=== PATIENT | male | born 1950 | race Caucasian/White ===

== ENCOUNTER 2016-12-07 12:12 | Emergency (ER) | payer OTHER ==
--- NOTE | 2016-12-07 14:30 | ED NURSING NOTES ---
Clinical Report - Nurses [facility] [address] [address] 12/07/2016 12:15 Patient: JACQUI ALFARO TRIAGE Triage time 12:41 Dec 07 2016. Acuity: LEVEL 4. Chief Complaint: (unsure pt's general complaint). Alert. No acute distress. BERNICE COMA SCORE: [place] Coma Scale: 15- eyes open spontaneously (4); best verbal response- oriented x 4 (5); best motor response- obeys commands (6). --12:49 Johana Fletcher R.N. 12:41 12/07/16. BP: 156/83. HR: 77. RR: 18. O2 saturation: 99%. Temp: 97.7 F. Pain level now 0/10. --12:49 Johana Fletcher R.N. Weight: 81.6 kg estimated. Height/Length: 66 inches Estimated. BMI: 29. --12:40 Johana Fletcher R.N. Medications Atenolol Oral 50 mg, 3 tablets a day. --13:43 Johana Fletcher R.N. AmLODIPine Besylate Oral 5 mg, daily. --13:43 Johana Fletcher R.N. Central-Sonido 1 tab, daily. --13:44 Johana Fletcher R.N. Fiber Choice Oral 2 tabs at dinner. --13:44 Johana Fletcher R.N. Omeprazole Oral 20 mg, daily. --13:45 Johana Fletcher R.N. Medication/allergy information source: the patient (getting a list). --12:49 Johana Fletcher R.N. Allergies None. --13:57 Johana Fletcher R.N. History Arrived by private vehicle. Historian: patient. Primary physician (Dr. Cooper). ( Sent over by Dr. Cooper. "because I'm not feeling better". Difficult to establish primary complaint from patient. Pt was on Sulfa for an infection on his face back in October. Thinks he was allergic from Sulfa, but still completed the course. Then started taking Naproxen, had 1 pill and said he had a reaction. Unsure what the reaction was. RN unclear what the complain is.). Treatment WELFARE ELIGIBILITY INTERVIEWER: None. PAST MEDICAL HX: Hypertension. No history of diabetes mellitus or lung disease. Immunizations: seasonal influenza. SOCIAL HX: Never smoker. Occasional alcohol use. No drug use. FALL RISK ASSESSMENT: Fall risk assessment completed. No fall risk identified. NUTRITIONAL RISK ASSESSMENT: The nutritional risk assessment revealed no deficiencies. FUNCTIONAL ASSESSMENT: Functional assessment: no impairments noted. LEARNING NEEDS ASSESSMENT: The learning needs assessment revealed no barriers. SKIN INTEGRITY ASSESSMENT: Skin integrity risk assessment completed. No skin integrity risk identified. --12:49 Johana Fletcher R.N. Interventions ID band on patient. To room. --12:49 Johana Fletcher R.N. PHYSICAL ASSESSMENT Ambulatory to room. GENERAL / NEURO / PSYCH: Oriented X 4. Appears in no acute distress. HEENT: Pupils equal, round and reactive to light. No facial asymmetry noted. Mucous membranes are pink. RESPIRATORY: Respirations not labored. CVS: Capillary refill less than 2 seconds. SKIN: Skin is warm and dry. --13:38 Johana Fletcher R.N. SKIN: Skin intact. Normal skin turgor. No skin rash. No skin breakdown noted. --13:58 Johana Fletcher R.N. NURSING PROGRESS NOTES ( seen by provider). --13:39 Johana Fletcher R.N. Blood samples drawn by lab per protocol: rainbow set. --13:57 Johana Fletcher R.N. ( Pt has many questions regarding the process of his labs, what will be happening after his blood work, will Dr. Cooper know the results, what if the staff doesn't do the right tests or enough tests, pt brought out multiple papers regarding his Sulfa and Naproxen pharmacy papers stating what side effects and reactions could be. Pt redirected on plan of care and that he needs to stay in the ER until labs are completed and discharged.). --14:31 Johana Fletcher R.N. DISPOSITION / DISCHARGE Departure time: 15:04 Dec 07 2016. --15:05 Johana Fletcher R.N. Condition at departure: unchanged and stable. No learning barriers present. Discharge instructions provided and reviewed with the patient. Patient verbalized understanding. Written instructions provided in [employer]eless. No medication instructions. The patient was discharged by the physician. He was discharged home. He left the Emergency Department ambulatory and via private vehicle. Patient driving. --15:05 Johana Fletcher R.N. Locked/Released at 12/07/2016 15:05 by Johana Fletcher R.N.
--- NOTE | 2016-12-07 14:30 | ED ORDER SUMMARY ---
..... Patient: JACQUI ALFARO OrderSheet [facility] VisitID: [id number] [address] [place] [address] 66y, M Registration Date/Time: 12/07/2016 ORDER SHEET Weight: 81.6 kg (estimated) Allergies: None GENERAL ORDERS: CBC w Diff Urgent (13:18 12/07/2016 HBivens A.R.N.P.) (Ack 13:23 LMuller) (14:09 LMuller) CMP Urgent (13:18 12/07/2016 HBivens A.R.N.P.) (Ack 13:23 LMuller) (14:09 LMuller) MEDICATION ORDERS: IV FLUIDS: ORDER SHEET NOTES: [Electronically signed by Johana Fletcher R.N. (15:05 12/07/2016)] [Electronically signed by Chela Jefferson.R.N.PJo (15:12/07/2016)] [Electronically locked/signed by Jhoana Fletcher R.N. (15:05 12/07/2016)]
--- NOTE | 2016-12-07 14:30 | ED CLINICAL REPORT ---
Clinical Report - Physicians/Mid Levels [facility] [address] [place] [address] 12/07/2016 12:15 Patient: JACQUI ALFARO Time Seen: 1303; initial patient contact, initial documentation, patient care assumed. Arrived- By private vehicle. Historian- patient. HISTORY OF PRESENT ILLNESS Chief Complaint: ( muscle aches). At its maximum, severity described as severe. When seen in the E.D., severity described as mild. Modifying factors. Not worsened by anything. Not relieved by anything. This started about 2 weeks ago and is still present but is improving. It was abrupt in onset and has been constant. No loss of appetite, weight loss, headache, visual disturbance or fatigue. Denies sleep problem. He has had muscle aches and weakness. No decreased urine output. Similar symptoms previously: None. Recent medical care: The patient was seen recently in the office. ( states he went to dr on 11/22 for infection on his face, dx with mrsa and given x10d bactrim rx, day 2 of taking it, started feeling bed, muscle aches every where, weakness, and didn't feel well, finished the abx and went back to dr on 12/04, was told infection on face looked better and to put abx ointment on it, went back to dr on 12/04 for body aches, blood work done, went back to dr / for the blood work results, and was given naprosyn, immediately after taking the naprosyn started having sweats, thinks he is having reactions to bactrim and naprosyn). REVIEW OF SYSTEMS No fever, sore throat, sinus drainage, nasal congestion or cough. No difficulty breathing, chest pain, abdominal pain, vomiting or diarrhea. No chills. All systems otherwise negative, except as recorded above. PAST HISTORY See nurses notes. Hypertension. Surgeries: Cholecystectomy. SOCIAL HISTORY Never smoker. Occasional alcohol use. No drug use. No recent travel. Is a local resident. FAMILY HISTORY Negative. ADDITIONAL NOTES The nursing notes have been reviewed with agreement regarding the chief complaint, HPI, ROS, PMH and patient medications and allergies. PHYSICAL EXAM Vital Signs: 12/07/2016 12:41 BP: 156/83. HR: 77. RR: 18. O2 saturation: 99%. Temp: 97.7 F. Have been reviewed as normal and appear to be correct. Appearance: Alert. No acute distress. Eyes: Pupils equal, round and reactive to light. Eyes normal inspection. Neck: Normal inspection. Neck supple. CVS: Normal heart rate and rhythm. Heart sounds normal. Pulses normal. Respiratory: No respiratory distress. Breath sounds normal. Chest nontender. Abdomen: No visible injury. Soft and nontender. Mildly obese. Back: Normal inspection. Skin: Skin warm and dry. Normal skin color. No rash. Normal skin turgor. (healing wound to L side of face/chin area, covered up by mustache until he pulls hair out of way, mild erythema, no swelling, no dc). Extremities: Extremities exhibit normal ROM. No lower extremity edema. Neuro: Oriented X 3. No motor deficit. No sensory deficit. LABS, X-RAYS, AND EKG Laboratory Tests: CBC w Diff: (MICHAEL: 12/07/2016 13:45) ( MsgRcvd 12/07/2016 13:52) Final results Test Result Flag Units (Reference) WHITE BLOOD COUNT 6.6 K/uL (4.5-11.5) RED BLOOD COUNT 4.13 L M/uL (4.50-5.90) HEMOGLOBIN 12.3 L gm/dL (13.5-17.5) HEMATOCRIT 37.5 L % (41.0-53.0) MEAN CELL VOLUME 91 fL (80-100) MEAN CORPUSCULAR HGB 30 pg (26-34) MEAN CORPUSCULAR HGB CONC 33 g/dL (31-37) RED CELL DISTRIBUTION WIDTH 13.5 % (11.6-14.8) PLATELET COUNT 327 K/uL (150-400) NEUTROPHIL % 75.6 H % (50-75) LYMPH % 16.1 L % (25-40) MONO % 7.9 % (3-14) EOSINOPHIL % 0.1 % (0-4) BASOPHIL % 0.3 % (0-2) CMP: (MICHAEL: 12/07/2016 13:45) ( MsgRcvd 12/07/2016 14:14) Final results Test Result Flag Units (Reference) GLUCOSE 130 H mg/dL (70-110) BUN 24 H mg/dL (7-18) CREATININE 0.8 mg/dL (0.6-1.3) Estimated GFR >60 mL/min Estimated GFR- >60 mL/min Note: Persistent reduction over 3 months in eGFR<60 mL/min/1.73 m2 defines CKD. Patients with eGFR values>=60 mL/min/1.73 m2 may also have CKD if evidence ofpersistent proteinuria. Additional information may be foundat www.kidney.org. SODIUM 142 mmol/L (136-145) POTASSIUM 5.0 mmol/L (3.5-5.1) CHLORIDE 106 mmol/L (98-107) CARBON DIOXIDE 28 mmol/L (21-32) CALCIUM 10.0 mg/dL (8.5-10.1) TOTAL PROTEIN 7.0 g/dL (6.4-8.2) ALBUMIN 2.6 L g/dL (3.3-5.0) BILIRUBIN, TOTAL 0.3 mg/dL (0.0-1.0) ALKALINE PHOSPHATASE 450 H U/L (46-116) AST (SGOT) 59 H U/L (15-37) ALT (SGPT) 171 H U/L (12-78) . PROGRESS AND PROCEDURES Patient counseled in person regarding the patient's stable condition, test results and diagnosis. 14:25. Differential Diagnosis: Other possible considerations: allergic reaction, mrsa, cellulitis, abscess, sepsis, flu, viral illness. Above considerations are based on history, physical exam and laboratory data. Differential diagnosis was discussed with patient. Disposition: Discharged home in good and unchanged condition (14:30). Condition: good and stable. CLINICAL IMPRESSION Normal exam upon presentation, while in the ED and at discharge. INSTRUCTIONS Warnings: Further evaluation is necessary in order to recheck abnormal lab. It is very important to follow up with a physician. GENERAL WARNINGS: Return or contact your physician immediately if your condition worsens or changes unexpectedly, if not improving as expected, or if other problems arise. Specifically return if problem worsens. Follow-up: Follow up with your doctor in about three days even if well. Call for an appointment. Summary of care provided to patient. Understanding of the discharge instructions verbalized by patient. (Electronically signed by Chela Jefferson A.R.N.P. 12/07/2016 15:08)
--- NOTE | 2016-12-07 14:30 | ED ORDER SUMMARY ---
..... Patient: JACQUI ALFARO OrderSheet [facility] VisitID: [id number] [address] [place] [address] 66y, M Registration Date/Time: 12/07/2016 ORDER SHEET Weight: 81.6 kg (estimated) Allergies: None GENERAL ORDERS: CBC w Diff Urgent (13:18 12/07/2016 HBivens A.R.N.P.) (Ack 13:23 LMuller) (14:09 LMuller) CMP Urgent (13:18 12/07/2016 HBivens A.R.N.P.) (Ack 13:23 LMuller) (14:09 LMuller) MEDICATION ORDERS: IV FLUIDS: ORDER SHEET NOTES: [Electronically signed by Johana Fletcher R.N. (15:05 12/07/2016)] [Electronically signed by Chela Jefferson.R.N.PJo (15:12/07/2016)] [Electronically locked/signed by Johana Fletcher R.N. (15:05 12/07/2016)]
--- NOTE | 2016-12-07 14:30 | ED NURSING NOTES ---
Clinical Report - Nurses [facility] [address] [address] 12/07/2016 12:15 Patient: JACQUI ALFARO TRIAGE Triage time 12:41 Dec 07 2016. Acuity: LEVEL 4. Chief Complaint: (unsure pt's general complaint). Alert. No acute distress. BERNICE COMA SCORE: [place] Coma Scale: 15- eyes open spontaneously (4); best verbal response- oriented x 4 (5); best motor response- obeys commands (6). --12:49 Johana Fletcher R.N. 12:41 12/07/16. BP: 156/83. HR: 77. RR: 18. O2 saturation: 99%. Temp: 97.7 F. Pain level now 0/10. --12:49 Johana Fletcher R.N. Weight: 81.6 kg estimated. Height/Length: 66 inches Estimated. BMI: 29. --12:40 Johana Fletcher R.N. Medications Atenolol Oral 50 mg, 3 tablets a day. --13:43 Johana Fletcher R.N. AmLODIPine Besylate Oral 5 mg, daily. --13:43 Johana Fletcher R.N. Central-Sonido 1 tab, daily. --13:44 Johana Fletcher R.N. Fiber Choice Oral 2 tabs at dinner. --13:44 Johana Fletcher R.N. Omeprazole Oral 20 mg, daily. --13:45 Johana Fletcher R.N. Medication/allergy information source: the patient (getting a list). --12:49 Johana Fletcher R.N. Allergies None. --13:57 Johana Fletcher R.N. History Arrived by private vehicle. Historian: patient. Primary physician (Dr. Cooper). ( Sent over by Dr. Cooper. "because I'm not feeling better". Difficult to establish primary complaint from patient. Pt was on Sulfa for an infection on his face back in October. Thinks he was allergic from Sulfa, but still completed the course. Then started taking Naproxen, had 1 pill and said he had a reaction. Unsure what the reaction was. RN unclear what the complain is.). Treatment WORKERS COMPENSATION CLAIMS SUPERVISOR: None. PAST MEDICAL HX: Hypertension. No history of diabetes mellitus or lung disease. Immunizations: seasonal influenza. SOCIAL HX: Never smoker. Occasional alcohol use. No drug use. FALL RISK ASSESSMENT: Fall risk assessment completed. No fall risk identified. NUTRITIONAL RISK ASSESSMENT: The nutritional risk assessment revealed no deficiencies. FUNCTIONAL ASSESSMENT: Functional assessment: no impairments noted. LEARNING NEEDS ASSESSMENT: The learning needs assessment revealed no barriers. SKIN INTEGRITY ASSESSMENT: Skin integrity risk assessment completed. No skin integrity risk identified. --12:49 Johana Fletcher R.N. Interventions ID band on patient. To room. --12:49 Johana Fletcher R.N. PHYSICAL ASSESSMENT Ambulatory to room. GENERAL / NEURO / PSYCH: Oriented X 4. Appears in no acute distress. HEENT: Pupils equal, round and reactive to light. No facial asymmetry noted. Mucous membranes are pink. RESPIRATORY: Respirations not labored. CVS: Capillary refill less than 2 seconds. SKIN: Skin is warm and dry. --13:38 Johana Fletcher R.N. SKIN: Skin intact. Normal skin turgor. No skin rash. No skin breakdown noted. --13:58 Johana Fletcher R.N. NURSING PROGRESS NOTES ( seen by provider). --13:39 Johana Fletcher R.N. Blood samples drawn by lab per protocol: rainbow set. --13:57 Johana Fletcher R.N. ( Pt has many questions regarding the process of his labs, what will be happening after his blood work, will Dr. Cooper know the results, what if the staff doesn't do the right tests or enough tests, pt brought out multiple papers regarding his Sulfa and Naproxen pharmacy papers stating what side effects and reactions could be. Pt redirected on plan of care and that he needs to stay in the ER until labs are completed and discharged.). --14:31 Johana Fletcher R.N. DISPOSITION / DISCHARGE Departure time: 15:04 Dec 07 2016. --15:05 Johana Fletcher R.N. Condition at departure: unchanged and stable. No learning barriers present. Discharge instructions provided and reviewed with the patient. Patient verbalized understanding. Written instructions provided in Estonian. No medication instructions. The patient was discharged by the physician. He was discharged home. He left the Emergency Department ambulatory and via private vehicle. Patient driving. --15:05 Johana Fletcher R.N. Locked/Released at 12/07/2016 15:05 by Johana Fletcher R.N.
--- NOTE | 2016-12-07 15:08 | ED DISCHARGE INSTRUCTIONS ---
Patient: JACQUI ALFARO General Instructions [facility] VisitID: [id number] [address] [address] 66y, M Registration Date/Time: 12/07/2016 Normal exam upon presentation, while in the ED and at discharge. INSTRUCTIONS Warnings: Further evaluation is necessary in order to recheck abnormal lab. It is very important to follow up with a physician. GENERAL WARNINGS: Return or contact your physician immediately if your condition worsens or changes unexpectedly, if not improving as expected, or if other problems arise. Specifically return if problem worsens. Follow-up: Follow up with your doctor in about three days even if well. Call for an appointment. Summary of care provided to patient. Understanding of the discharge instructions verbalized by patient. ADDITIONAL INFORMATION Normal Exam [6Yr - Adult] Based on your or your child's exam today, there are no signs of illness or injury. Be assured that the symptoms that worried you are normal. They do not suggest any illness requiring testing or treatment at this time. Home Care: You (or your child) can return to normal activities and diet. If you or your child have new or unusual symptoms not already discussed today, contact the doctor. Follow Up with the doctor for the next routine appointment. For more information: For childrens health information: www.kidshealth.org For adult health information: www.[facility].org You have been given the following additional information: Normal Exam, (Child) (Adult) (Electronically signed by Chela Jefferson A.R.N.P. 12/07/2016 15:08)
--- NOTE | 2016-12-07 15:08 | ED MAR SUMMARY ---
..... Medication Administration Record [facility] [address] [place] [id number] Patient: JACQUI ALFARO Visit ID: [id number] 66y, M Weight: 81.6 kg Height/Length: 66 in BMI: 29 ALLERGIES: None
--- NOTE | 2016-12-07 15:08 | ED MED RECONCILIATION SUMMARY ---
Patient: JACQUI ALFARO Medication Reconciliation Report [facility] VisitID: [id number] [address] [address] 66y, M Registration Date/Time: 12/07/2016 Weight: 81.6 kg Height/Length: 66 in. BMI: 29.0 ALLERGIES: None The patient's Home Medications are listed below: THE FOLLOWING MEDICATIONS NEED TO BE RECONCILED: AmLODIPine Besylate Oral 5 mg, daily Atenolol Oral 50 mg, 3 tablets a day Central-Sonido 1 tab, daily Fiber Choice Oral 2 tabs at dinner Omeprazole Oral 20 mg, daily The source(s) of the original Home Medication information: patient getting a list The following Medications were given to the patient in the Emergency Department: None. The following Medications were prescribed to the patient: None.
--- NOTE | 2016-12-07 15:08 | ED MAR SUMMARY ---
..... Medication Administration Record [facility] [address] [place], [place] [id number] Patient: JACQUI ALFARO Visit ID: [id number] 66y, M Weight: 81.6 kg Height/Length: 66 in BMI: 29 ALLERGIES: None
--- NOTE | 2016-12-07 15:08 | ED MED RECONCILIATION SUMMARY ---
Patient: JACQUI ALFARO Medication Reconciliation Report [facility] VisitID: [id number] [address] [place] [address] 66y, M Registration Date/Time: 12/07/2016 Weight: 81.6 kg Height/Length: 66 in. BMI: 29.0 ALLERGIES: None The patient's Home Medications are listed below: THE FOLLOWING MEDICATIONS NEED TO BE RECONCILED: AmLODIPine Besylate Oral 5 mg, daily Atenolol Oral 50 mg, 3 tablets a day Central-Sonido 1 tab, daily Fiber Choice Oral 2 tabs at dinner Omeprazole Oral 20 mg, daily The source(s) of the original Home Medication information: patient getting a list The following Medications were given to the patient in the Emergency Department: None. The following Medications were prescribed to the patient: None.
--- NOTE | 2016-12-07 15:08 | ED DISCHARGE INSTRUCTIONS ---
Patient: JACQUI ALFARO General Instructions [facility] VisitID: [id number] [address] [address] 66y, M Registration Date/Time: 12/07/2016 Normal exam upon presentation, while in the ED and at discharge. INSTRUCTIONS Warnings: Further evaluation is necessary in order to recheck abnormal lab. It is very important to follow up with a physician. GENERAL WARNINGS: Return or contact your physician immediately if your condition worsens or changes unexpectedly, if not improving as expected, or if other problems arise. Specifically return if problem worsens. Follow-up: Follow up with your doctor in about three days even if well. Call for an appointment. Summary of care provided to patient. Understanding of the discharge instructions verbalized by patient. ADDITIONAL INFORMATION Normal Exam [6Yr - Adult] Based on your or your child's exam today, there are no signs of illness or injury. Be assured that the symptoms that worried you are normal. They do not suggest any illness requiring testing or treatment at this time. Home Care: You (or your child) can return to normal activities and diet. If you or your child have new or unusual symptoms not already discussed today, contact the doctor. Follow Up with the doctor for the next routine appointment. For more information: For childrens health information: www.kidshealth.org For adult health information: www.[facility].org You have been given the following additional information: Normal Exam, (Child) (Adult) (Electronically signed by Chela Jefferson A.R.N.P. 12/07/2016 15:08)
== END 2016-12-07 14:45 | disposition home or self-care (01) ==
LOC: ED SRH 12:12
DX: M79.1 Myalgia (principal); I10 Essential (primary) hypertension
CPT/HCPCS: 90074; 90100; 95059